=== PATIENT | male | born 2000 | race Native Hawaiian/Other Pacific Islander ===

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

== ENCOUNTER 2022-03-15 14:11 | Emergency (ER) | payer OTHER ==
[~2022-03-15] VITALS: Ht 182.9 cm; Wt 85.7 kg
[2022-03-15 14:15] VITALS: TEMP 99.1
[2022-03-15 15:53] VITALS: BP 118/68
== END 2022-03-15 15:53 | disposition home or self-care (01) ==
LOC: ED 14:11
DX: S39.012A Strain of muscle, fascia and tendon of lower back, initial encounter (principal); X50.0XXA Overexertion from strenuous movement or load, initial encounter; Y92.89 Other specified places as the place of occurrence of the external cause
CPT/HCPCS: 96372; 99283; J1885